=== PATIENT | male | born 2000 | race Two or more races ===

== ENCOUNTER → 2025-01-16 | Outpatient (CLI) | payer MEDICAID, SELFPAY ==
--- NOTE | 2025-01-16 11:13 | XR_ITS ---
Examination: PA lateral chest 2 views TECHNIQUE: Upright PA lateral chest 2 views Exam date and time: January 16, 2025 1130 hours INDICATIONS: Acute coughing beginning 2 weeks ago. FINDINGS: Heart size Lungs are clear. The osseous structures are intact IMPRESSION: No active disease
== END | disposition home or self-care (01) ==
DX: R05.1 Acute cough (principal)
CPT/HCPCS: 71046

== ENCOUNTER 2025-02-12 00:27 | Emergency (ER) | payer MEDICAID, SELFPAY ==
[2025-02-12 00:47] VITALS: BP 137/71; PULSE 109; RESP 18; TEMP 37.5; O2SAT 98
--- NOTE | 2025-02-12 00:56 | EDNOTE_ITS ---
ED Abdominal Pain RME/HPI General Chief Complaint: Abdominal Pain Stated complaint: VOMITING Time seen by provider: 02/12/25 00:56 Arrival date/time: 02/12/25 00:27 RME / HPI RME / HPI narrative: The patient is a 25-year-old male with no significant past medical history presented to ED with chief complaint of cough and SOB for 1 month. He reported that his symptoms has been associated with nausea, vomiting and chest pain during coughing. He was prescribed antibiotics for 1 week about 3 weeks ago, but his symptoms did not improve after completion of antibiotics. He admitted associated nasal congestion, occasional GERD and has been working as a cleaning staff at night. He denied any lightheadedness, abdominal pain, any changes in bowel or bladder habit, fever or chills, or leg swelling. Related Data Previous Rx's ?Medication ?Instructions ?Recorded acetaminophen 500 mg tablet 500 mg PO TID #30 tabs albuterol sulfate 90 mcg/actuation 2 puff inhalation Q ID PRN 02/12/25 aerosol inhaler shortness of breath or wheez ing #8.5 grams azithromycin 250 mg tablet 250 mg PO QDAY #4 tabs 01/30 01/24 montelukast 10 mg tablet 10 mg PO QDAY #14 tabs 02/12 pantoprazole 40 mg tablet,delayed 40 mg PO QDAY #14 ta bs 02/12/25 release Allergies Allergy/AdvReac Type Severity Reaction Status Date / Time No Known Allergies Allergy Verified 02/12/25 00:35 Review of Systems Review of Systems Systems Reviewed: All systems reviewed, normal except as documented Past Medical History Social History SMOKING STATUS: Never smoker ED Exam Narrative Physical exam: General: Young, cooperative gentleman, no acute distress, Alert and Oriented x 3 HEENT: Moist mucous membranes, oropharynx clear Neck: Supple, No masses, No JVD CVS: Tachycardic, No murmurs, rubs or gallops Lungs: Mild wheezing throughout the lung field Abd: Soft, NT/ND, +BS, no organomegaly Ext: No edema, warm and well perfused Skin: No rash Psych: Appropriate mood and affect Course Quality Measures none Orders Category Date Time Status EKG (ED ONLY) *Do not use* NOW Care 02/12/25 01:09 Completed EKG (ED Only) Stat Exams 02/12/25 01:08 Draft US liver Stat Exams 02/12/25 03:09 Taken XR chest 1V portable Stat Exams 02/12/25 01:08 Taken CBC Stat Lab 02/12/25 01:28 Completed CMP [Comprehensive Metabolic Panel] Stat Lab 02/12/25 01:28 Completed Cocci Serology IgM with reflex to IgG [Cocci Serology, Lab 02/12/25 01:28 Received Unk History] Stat Magnesium Stat Lab 02/12/25 01:28 Completed Acetaminophen Tab [Tylenol Tab] Med 02/12/25 01:10 Discontinued 650 mg PO X1 ONE Albuterol/Ipratr Rt Melissa [Duoneb Rt Melissa] Med 02/12/25 01:08 Discontinued 3 ml INH X1 ONE Albuterol/Ipratr Rt Melissa [Duoneb Rt Melissa] Med 02/12/25 04:40 Discontinued 3 ml INH X1 ONE Azithromycin Po [Zithromax PO] Med 02/12/25 03:42 Discontinued 500 mg PO X1 ONE Montelukast Sodium [Singulair] Med 02/12/25 03:42 Discontinued 10 mg PO X1 ONE Pantoprazole [Protonix] Med 02/12/25 01:10 Discontinued 40 mg PO X1 ONE Vital Signs Vital signs: Vital Signs Temperature 99.5 F 02/12/25 00:47 Pulse Rate 109 H 02/12/25 00:47 Respiratory Rate 18 02/12/25 00:47 Blood Pressure 137/71 H 02/12/25 00:47 Pulse Oximetry (%) 98 02/12/25 00:47 Oxygen Delivery Method Room Air 02/12/25 00:47 Abdominal Pain [facility] Narrative [facility] Narrative:: The patient is a 25-year-old male with no significant past medical history presented to ED with chief complaint of cough and SOB for 1 month. He reported that his symptoms has been associated with nausea, vomiting and chest pain during coughing. He was prescribed antibiotics for 1 week about 3 weeks ago, but his symptoms did not improve after completion of antibiotics. He admitted associated nasal congestion, occasional GERD and has been working as a cleaning staff at night. He denied any lightheadedness, abdominal pain, any changes in bowel or bladder habit, fever or chills, or leg swelling. Initial vitals revealed blood pressure 137/71, pulse 109, temperature 99.5, saturating 98% on room air. Labs revealed white count of 12.1, hemoglobin 16.3, chemistry panel revealed total bilirubin 1.8. EKG revealed sinus tachycardia, and chest x-ray interpreted by me was negative for any pneumonia. US liver and coccidiomycosis IgM pending. The patient was given Tylenol 650 Mg p.o. x 1, DuoNeb INH x 2, azithromycin 500 mg p.o. x 1 and montelukast 10 Mg p.o. x 1. The patient reported doing much better after this treatment. He was planned to discharge home. Patient data External records reviewed:: [facility] previous records Clinical information provided by:: patient Social determinants that could affect healthcare access:: none Patient has the following chronic illnesses:: None How is presenting disease/condition affected by chronic disease/condition?: no chronic disease Evaluation data The following diagnostics were reviewed and interpreted by me:: lab results, radiology exam(s) and EKG tracing(s) Lab and/or radiology exams considered but not ordered:: None Interpretation Summary: See above Medications / Prescriptions Medications or Prescriptions considered but not ordered:: None Medication administrations:: Medication Administration History Discontinued Medications Acetaminophen (Acetaminophen 325 Mg Tablet) 650 mg PO X1 ONE Stop: 02/12/25 01:11 Last Admin: 02/12/25 02:13 Dose: 650 mg Documented By: HERNANDEZ Albuterol/Ipratropium (Albuterol/Ipratropium (Duoneb) Rt Melissa 3 Ml Nebu) 3 ml INH X1 ONE Stop: 02/12/25 01:09 Last Admin: 02/12/25 01:44 Dose: 3 ml Documented By: JC Albuterol/Ipratropium (Albuterol/Ipratropium (Duoneb) Rt Melissa 3 Ml Nebu) 3 ml INH X1 ONE Stop: 02/12/25 04:41 Azithromycin (Azithromycin 250 Mg Tablet) 500 mg PO X1 ONE Stop: 02/12/25 03:43 Last Admin: 02/12/25 04:33 Dose: 500 mg Documented By: NINI Montelukast Sodium (Montelukast Sodium 10 Mg Tablet) 10 mg PO X1 ONE Stop: 02/12/25 03:43 Pantoprazole Sodium (Pantoprazole 40 Mg Tablet) 40 mg PO X1 ONE Stop: 02/12/25 01:11 Last Admin: 02/12/25 02:14 Dose: 40 mg Documented By: HERNANDEZ See above Consultations Consultation(s) initiated? (list below): No Diagnosis Differential diagnosis abdominal pain: other (GERD, adult onset asthma, PND) Most likely diagnosis given after review of the tests above:: Adult onset asthma Admission Indicated Admission indicated?: not indicated Admission Request Was there a request for admission?: No Disposition Plan Disposition Plan: Discharge Discharge Attestation Discharge Attestation: The patient and all family members were given an opportunity to ask questions and understood the discharge instructions. Discharge instructions specifically effects, indications for sooner follow up or return to the emergency department, and the expected course of current diagnosis. Patient condition: Stable Discharge Plan Plan Patient Disposition: HOME (Self Care) Prescriptions/Referrals Prescriptions/Med Rec: New azithromycin 250 mg tablet 250 mg PO QDAY Qty: 4 0RF montelukast 10 mg tablet 10 mg PO QDAY Qty: 14 0RF albuterol sulfate 90 mcg/actuation HFA aerosol inhaler 2 puff inhalation QID PRN (Reason: shortness of breath or wheezing) Qty: 8.5 2RF pantoprazole 40 mg tablet,delayed release (DR/EC) 40 mg PO QDAY Qty: 14 0RF acetaminophen 500 mg tablet 500 mg PO TID Qty: 30 0RF Referrals: Rosa Quispe MD [Primary Care Provider] - In 1 week Problem List Clinical Impression: Asthma with acute exacerbation in adult Patient/Caregiver Discharge Instructions Other Activity Instructions:: You have been diagnosed with adult onset asthma likely exacerbated by exposure of dust particle at your work. You have been discharged on following recommendations by Dr. Kessler: Please follow-up with your PCP within 1 week of discharge, and request to get reports regarding US liver and coccidiomycosis test. You have been started on: - Albuterol 2 puffs as needed for shortness of breath or cough - Montelukast 10 mg daily for 14 days - Azithromycin 250 Mg daily for 4 days - Pantoprazole 40 Mg daily for 14 days - Tylenol 500 Mg up to 3 times a day for pain or fever - Please wear a mask at [employer] or at your work - Recommended to return back to emergency department if your symptoms persists or worsens Education Materials: Using an Inhaler, Asthma Trigger Checklist, ED Asthma, Acute (Adult) Print Language: [place] Stand Alone Forms: Greta Award Info., Patient Portal Info Letter
--- NOTE | 2025-02-12 01:08 | EKG_ITS ---
[facility] Test Date: 2025-02-12 Pat Name: ZACHARY STEPHENSON Department: Room: - Gender: Male [employer] Technologist: : [id number] Requested By: Regulo Kessler Order Number: [id number] Reading MD: Regulo Kessler Measurements Intervals [place] Rate: 109 P: 36 [place]: 136 QRS: -18 QRSD: 102 T: 45 QT: 304 QTc: 411 Interpretive Statements SINUS TACHYCARDIA ABNORMAL RHYTHM ECG No previous ECG available for comparison /[id number]
--- NOTE | 2025-02-12 01:08 | XR_ITS ---
Examination: PA chest single view TECHNIQUE: Upright PA chest single view Date and time: February 12, 2025 0126 hours Comparison January 16, 2025 INDICATIONS: Coughing one month. FINDINGS: Normal heart size. Lungs are clear. Osseous structures are intact. IMPRESSION: No active disease
[2025-02-12] MEDS: ALBUTEROL/IPRATROPIUM (Duoneb) RT SOL 3 ML NEBU INH (01:44)
[2025-02-12 01:53] LABS: Basophils # (Auto) 0.1 Thou/mm3 (0.0-0.2); Basophils % (Auto) 0 % (0-2.5); Eosinophils # (Auto) 0.7 Thou/mm3 (0.0-0.5); Eosinophils % (Auto) 6 % (0-10); Hematocrit 43.8 % (41.0-53.0); Hemoglobin 16.3 g/dL (13.5-16.0); Immature Granulocytes % (Auto) 0 % (0-0); Immature Granulocytes Auto 0.04 Thou/mm3 (0.00-0.00); Lymphocytes # (Auto) 3.3 Thou/mm3 (1.0-4.8); Lymphocytes % (Auto) 27 % (10-50); Mean Corpuscular HGB Conc 37.2 g/dl (31.0-37.0); Mean Corpuscular Hemoglobin 31.2 pg (25.0-35.0); Mean Corpuscular Volume 84 fL (80-100); Monocytes # (Auto) 0.9 Thou/mm3 (0.0-0.8); Monocytes % (Auto) 8 % (0-12); Neutrophils # (Auto) 7.1 Thou/mm3 (1.8-7.7); Neutrophils % (Auto) 59 % (37-80); Nucleated Red Blood Cell % 0 /100 WBC (0); Platelet Count 219 Thou/mm3 (140-440); RDW Standard Deviation 38.2 fL (35.1-43.9); Red Blood Count 5.22 Miln/mm3 (4.50-5.90); White Blood Count 12.1 Thou/mm3 (3.8-10.6)
[2025-02-12 01:55] VITALS: PULSE 86; RESP 18; O2SAT 100
[2025-02-12 02:11] LABS: Alanine Aminotransferase 41 U/L (10-49); Albumin, Serum 4.7 gm/dL (3.5-5.0); Albumin/Globulin Ratio 1.6 (1.2-2.2); Alkaline Phosphatase 87 U/L (46-116); Anion Gap 8 (7-16); Aspartate Amino Transferase 26 U/L (0-34); BUN/Creatinine Ratio 13 Ratio (12-20); Bilirubin,Total 1.8 mg/dL (0.3-1.2); Blood Urea Nitrogen 12 mg/dL (9-23); Calcium 9.2 mg/dL (8.3-10.6); Calcium (Corrected) 9.2 mg/dL (8.5-10.1); Carbon Dioxide 29.6 mMol/L (20.0-31.0); Chloride 102 mMol/L (98-107); Creatinine (Component) 0.9 mg/dL (0.6-1.3); Estimated Creatinine Clearance 148.9 mL/min (>60); Glucose 99 mg/dL (74-106); Osmolality,Calculated 279 (275-295); Potassium 3.6 mMol/L (3.4-5.1); Sodium 140 mMol/L (136-145); Total Protein 7.7 gm/dL (5.7-8.2); eGFR > 60 See Note
[2025-02-12] MEDS: ACETAMINOPHEN 325 MG TABLET 650 MG PO (02:13)
[2025-02-12] MEDS: PANTOPRAZOLE 40 MG TABLET PO (02:14)
--- NOTE | 2025-02-12 03:09 | XR_ITS ---
Examination: Abdomen sonogram, Limited Date and time of exam: February 12, 2025 0418 hours INDICATIONS: Elevated bilirubin on laboratory examination today. Technique: Real-time oneal scale transabdominal sonographic images of the upper abdomen obtained. Findings: Mild dextro 0.3 cm Pancreatic head 2.5 cm 15.7 cm smooth contour and no focal liver lesions Normal hepatopedal portal venous flow Patent IVC IMPRESSION: Normal gallbladder Fatty liver
[2025-02-12] MEDS: AZITHROMYCIN 250 MG TABLET 500 MG PO (04:33)
[2025-02-12 04:50] VITALS: PULSE 77; RESP 18; O2SAT 100
[2025-02-12] MEDS: MONTELUKAST SODIUM 10 MG TABLET PO (05:52)
--- NOTE | 2025-02-12 05:55 | PC.NURSE ---
waited for medication to be brought by house supp. med came at 9413
--- NOTE | 2025-02-12 06:01 | PRELIM_ITS ---
Ultrasound liver. February 12, 2025 at 0418 hours Clinical history: Bilirubin of 1.8 Comparison: None Findings: Gallbladder wall is 2 mm thick. No cholelithiasis or gallbladder sludge. Patient was nontender over the gallbladder. Common bile duct is 3 mm in diameter. Pancreas is obscured. Liver is 15.7 cm long and hyperechoic. No focal hepatic lesion. Portal vein is antegrade. Inferior vena cava is patent. Impression: Normal gallbladder. Fatty infiltration of liver. Report Electronically Signed By: Jacob Schumacher 02/12/2025 6:00:46 AM [EST]
[2025-02-13 12:33] LABS: Cocci Serology, IgM Negative (Negative)
[2025-02-14 12:34] LABS: Cocci Serology, IgG Negative (Negative)
== END 2025-02-12 05:57 | disposition home or self-care (01) ==
PROVIDERS: Emergency Provider Student in an Organized Health Care Education/Training Program; PCP Internal Medicine
DX: J45.901 Unspecified asthma with (acute) exacerbation (principal); K21.9 Gastro-esophageal reflux disease without esophagitis; E80.7 Disorder of bilirubin metabolism, unspecified
CPT/HCPCS: 36415; 71045; 76705; 80053; 83735; 85025; 86331; 86635; 87400; 87811; 93005; 94640; 99284; A9270

== ENCOUNTER → 2025-04-01 | Outpatient (CLI) | payer MEDICAID, SELFPAY ==
--- NOTE | 2025-04-01 09:48 | XR_ITS ---
Examination: Thoracic spine 3 views Technique one AP lateral coned lateral upper dorsal spine 3 views Date and time: April 01, 2025, 0949 hours INDICATIONS: Upper back pain beginning 3 weeks ago FINDINGS: Adequate alignment thoracic vertebral bodies No thoracic fracture. No significant degenerative change IMPRESSION: No thoracic fracture or significant arthritic change
== END | disposition home or self-care (01) ==
LOC: CDIM 09:40
DX: M54.6 Pain in thoracic spine (principal)
CPT/HCPCS: 72072